=== PATIENT | female | born 1990 | race Caucasian/White ===

== ENCOUNTER 2017-04-21 19:43 | Emergency (ER) | payer OTHER ==
[2017-04-21 21:38] VITALS: BP 111/73
== END 2017-04-21 21:38 | disposition home or self-care (01) ==
LOC: ED 19:43
DX: S39.012A Strain of muscle, fascia and tendon of lower back, initial encounter (principal); X50.0XXA Overexertion from strenuous movement or load, initial encounter; Y93.89 Activity, other specified; Y92.89 Other specified places as the place of occurrence of the external cause; Y99.8 Other external cause status